=== PATIENT | female | born 1945 | race Caucasian/White ===

== ENCOUNTER 2017-06-24 13:35 | Emergency (ER) | payer MEDICARE, BC ==
[~2017-06-24] VITALS: Ht 167.6 cm; Wt 56.7 kg
[2017-06-24] MEDS ORDERED: ACETAMINOPHEN ES 500 MG TABLET PO ONE (14:15)
[2017-06-24] MEDS ORDERED: LIDOCAINE HCL 1% 20 ML VIAL TP ONE (14:15)
[2017-06-24] MEDS ORDERED: ACETAMINOPHEN ES 500 MG TABLET ONE (14:28)
--- NOTE | 2017-06-24 15:22 | NUR ---
Patient discharged to home in stable conditon. Written and verbal after care instructions given. Patient verbalizes understanding of instructions.pt accompanied by caregiver.
[2017-06-24 15:24] VITALS: BP 110/71
== END 2017-06-24 15:24 | disposition home or self-care (01) ==
LOC: ER 13:35
DX: S81.812A Laceration without foreign body, left lower leg, initial encounter (principal); W18.09XA Striking against other object with subsequent fall, initial encounter; Y93.89 Activity, other specified; Y92.9 Unspecified place or not applicable; Y99.9 Unspecified external cause status
CPT/HCPCS: 12002; 73590; 99284; A4217; A4663; J3490